=== PATIENT | female | born 1975 | race African-American/Black ===

== ENCOUNTER 2018-05-09 03:25 | Emergency (ER) | payer MEDICAID, MEDICARE ==
--- NOTE | 2018-05-09 04:10 | ER Document Report ---
ED General - General Chief Complaint: Rash Stated Complaint: POSSIBLE RASH Time Seen by Provider: 05/09/18 03:41 Notes: Patient is a 42-year-old female who presents with complaint of a rash that has been ongoing for several months. She said it is on both her hands and legs. She initially she had some on her hands but is since gone away. She says she used vinegar as well as soap and water and sometimes bleach water to treat the rash on her hands. She has been insetting her legs but the areas on her legs are not improving. She herself thinks it could be poison kevin based on pictures that she looked at online. She denies any fevers. She denies any redness or swelling. She says the rash sometimes itches and bush. She denies any oral lesions. No vomiting. No systemic symptoms. I asked the patient if she is on medications are supposed to be on any medications. She says she does have a history of schizophrenia and is used to be prescribed medications for schizophrenia. She says that used to help with but then he got to the point where they are just causing side effects. She said her medications were switched several times but she continued to just have side effects and worsening and therefore she stopped taking them. She says that she feels that she does well without the medications as any benefit from medications was outweighed by the side effects. She denies any thoughts of wanting herself or hallucinations. She lives with her mother. Past Medical History - Social History Smoking Status: Unknown if Ever Smoked Chew tobacco use (# tins/day): No Frequency of alcohol use: None Drug Abuse: None Family History: Reviewed & Not Pertinent Patient has suicidal ideation: No Patient has homicidal ideation: No Renal/ Medical History: Denies: Hx Peritoneal Dialysis Review of Systems - Review of Systems Notes: My Normal Review Basic REVIEW OF SYSTEMS: CONSTITUTIONAL : Denies fever, chills, or sweats. Denies recent illness. EENT: Denies eye, ear, throat, or mouth pain or symptoms. Denies nasal or sinus congestion. GASTROINTESTINAL: . Denies nausea, vomiting, or diarrhea. MUSCULOSKELETAL: Denies neck or back pain or joint pain or swelling. SKIN: Rash on legs. NEUROLOGICAL: Denies altered mental status or loss of consciousness. PSYCHIATRIC: Has depression. Denies thoughts of suicide. Denies hallucinations. ALL OTHER SYSTEMS REVIEWED AND NEGATIVE. Physical Exam - Notes Notes: General Appearance: Well nourished, alert, cooperative, no acute distress, no obvious discomfort. Well-appearing Vitals: reviewed, See vital signs table. Eyes: PERRL, EOMI, Conjuctiva clear Mouth: No decreasd moisture Lungs: No wheezing, No rales, No rhonci, No accessory muscle use, good air exchange bilaterally. Heart: Normal rate, Regular rythm, No murmur, no rub Abdomen: Normal BS, soft, No rigidity, No abdominal tenderness, No guarding, no rebound, no abdominal masses, no organomegaly Extremities: strength 5/5 in all extremities, good pulses in all extremities, no swelling or tenderness in the extremities, no edema. Skin: Patient is a very dry appearance to her skin on her legs. She has appears to be some chronic excoriation to the skin on her right leg and also some areas that look consistent with nummular eczema. No surrounding erythema or spreading redness. No signs of infection at this time. No drainage from the rash. Neuro: speech clear, oriented x 3, normal affect, responds appropriately to questions. Psychiatric: Patient does have a somewhat odd affect however she answers all questions appropriately. She is shows no signs of hallucinations during exam. She gives appropriate responses. She makes good eye contact. She is not depressed appearing at all. She is not easily agitated. Course - Re-evaluation Re-evalutation: 05/09/18 04:45 Patient is well-appearing. I feel the patient is safe to be discharged home. I suspect based on exam that she has eczema. I recommend using the low potency triamcinolone cream in conjunction with a non-perfumed non-dyed lotion such as Eucerin or CeraVe cream. Currently the rash does not have any signs of infection. There is no blistering. There is no ulcerations. I talked to patient length about the rash. Patient herself is convinced that it is poison kevin. I informed patient that is highly unlikely this is poison kevin being that has been there now for several months. Also the rash does not look like poison kevin. Also the patient does not remember actually touching or wearing up against poison kevin leaves and also the rash goes well upon to her thigh which is unlikely to be exposed to the poison kevin. I informed the patient that I do recommend the treatment that I have prescribed and that she should try this. Patient is willing to try the treatment of prescribed. She said she would follow-up with the rash worsens or if she has surrounding redness or swelling. Patient does not have vital signs because she refused vital signs because she says that they will not help in treatment of the rash. Patient does not want her vital signs taking. Patient does have a history of schizophrenia. She is at not actively hallucinating and is not depressed and answers my questions appropriately. Despite this is still offered for her to speak with mental health being that she is off her medications. She does not want to speak with mental health and says that she prefers not to get back medications being that she feels the side effects of medications outweigh the benefits. She says she would rather follow-up with her physician in regards to this. Patient is not showing any signs or symptoms that would require involuntary commitment and therefore patient will be discharged as requested with treatment of the rash. I informed patient she is welcome return anytime she changes her mind about seeing our mental health evaluators. Dictation of this chart was performed using voice recognition software; therefore, there may be some unintended grammatical errors. Discharge - Discharge Clinical Impression: Rash Condition: Good Disposition: HOME, SELF-CARE Additional Instructions: Please apply a thin layer of the triamcinolone cream to your rash on your leg twice a day. Please also apply a perfume and dye free lotion such as Eucerin or Cerave twice a day. Please follow-up with your doctor in 3-4 days for reevaluation. Please return to the ER immediately if you have fevers, associated swelling with the rash, or worsening of the rash. Please return to the ER if you are having hallucinations, depression, thoughts of suicide, or if you want any help with his schizophrenia or want to reconsider going back on medications for your history of schizophrenia. Prescriptions: Triamcinolone Acetonide [Triderm] 454 gm TP ASDIR PRN #454 cream..g. PRN Reason: Referrals: PAOLA BA MD [ACTIVE STAFF] - Follow up in 3-5 days
[2018-05-09 04:40] VITALS: BP 116/59
== END 2018-05-09 04:40 | disposition home or self-care (01) ==
LOC: ER 03:25
DX: R21 Rash and other nonspecific skin eruption (principal)
CPT/HCPCS: 99282

== ENCOUNTER 2018-05-09 11:25 | Emergency (ER) | payer SELFPAY | END 2018-05-09 11:33 | disposition left against medical advice (07) | LOC: ER 11:25 | DX: Z53.21 Procedure and treatment not carried out due to patient leaving prior to being seen by health care provider (principal) ==

== ENCOUNTER 2019-03-21 13:51 | Emergency (ER) | payer SELFPAY ==
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
[2019-03-21 15:47] LABS: ALBUMIN 3.9 g/dL (3.5-5.0); ALKALINE PHOSPHATASE 46 U/L (38-126); ANION GAP 9 (5-19); ASPARTATE AMINO TRANSFERASE 16 U/L (14-36); BILIRUBIN,DIRECT 0.2 mg/dL (0.0-0.4); BILIRUBIN,TOTAL 0.4 mg/dL (0.2-1.3); BLOOD UREA NITROGEN 11 mg/dL (7-20); CALCIUM 8.8 mg/dL (8.4-10.2); CARBON DIOXIDE 23 mmol/L (22-30); CHLORIDE 112 mmol/L (98-107); GLUCOSE 111 mg/dL (75-110); POTASSIUM 3.8 mmol/L (3.6-5.0); TOTAL PROTEIN 7.3 g/dL (6.3-8.2)
[2019-03-21 15:48] LABS: ACETAMINOPHEN < 10 ug/mL (10-30); ALCOHOL < 10 mg/dL (NONE DETECTED); SALICYLATE < 1.0 mg/dL (2.0-20.0)
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
[2019-03-21 18:25] LABS: ABSOLUTE BASOPHILS # (AUTO) 0.1 10^3/uL (0.0-0.2); ABSOLUTE LYMPHOCYTES (AUTO) 0.7 10^3/uL (0.5-4.7); ABSOLUTE MONOCYTES (AUTO) 0.6 10^3/uL (0.1-1.4); ABSOLUTE NEUT (AUTO) 8.1 10^3/uL (1.7-8.2); BASOPHILS % (AUTO) 0.7 % (0-2); HEMATOCRIT 19.3 % (36.0-47.0); LYMPHOCYTES % (AUTO) 7.7 % (13-45); MEAN CORPUSCULAR HEMOGLOBIN 15.5 pg (27.0-33.4); MEAN CORPUSCULAR HGB CONC 27.9 g/dL (32.0-36.0); MONOCYTES % (AUTO) 6.3 % (3-13); PLATELET COUNT 266 10^3/uL (150-450); RED BLOOD COUNT 3.47 10^6/uL (3.72-5.28); RED CELL DISTRIBUTION WIDTH 21.3 % (11.5-14.0); SEGMENTED NEUTROPHILS % (AUTO) 85.3 % (42-78); TOTAL CELLS COUNTED % (AUTO) 100 %; WHITE BLOOD COUNT 9.5 10^3/uL (4.0-10.5)
[2019-03-21 18:56] LABS: HEMOGLOBIN 5.4 g/dL (12.0-15.5)
[2019-03-21 18:57] LABS: MEAN CORPUSCULAR VOLUME 56 fl (80-97)
[2019-03-21 18:58] LABS: ANISOCYTOSIS 3+; HYPOCHROMASIA 4+; OVALOCYTES SLIGHT; PLATELET COMMENT ADEQUATE; POIKILOCYTOSIS 1+; POLYCHROMASIA SLIGHT; TEAR DROP CELLS SLIGHT
[2019-03-21 19:39] LABS: ABSOLUTE RETICS # 0.068 10^6/uL (0.028-0.122); RETICULOCYTE COUNT (AUTO) 1.95 % (0.66-2.85)
[2019-03-21 19:43] LABS: INTERNATIONAL RATION (INR) 1.08
[2019-03-21] MEDS ORDERED: RISPERIDONE 1 MG TABLET PO SCH (19:45)
[2019-03-21] MEDS ORDERED: BENZTROPINE MESYLATE 1 MG TABLET PO SCH (19:45)
[2019-03-21 19:50] LABS: IRON(TIBC) 15.3 ug/dL (37-170)
[2019-03-21 20:26] LABS: FERRITIN 3.65 ng/mL (6.2-137.0)
[2019-03-21 20:57] LABS: FOLATE > 20.00 ng/mL (>2.76)
[2019-03-21] MEDS: RISPERIDONE 1 MG TABLET PO SCH (22:23)
[2019-03-21] MEDS: BENZTROPINE MESYLATE 1 MG TABLET PO SCH (22:24)
--- NOTE | 2019-03-21 22:55 | ER Document Report ---
Doctor's Note Notes: 03/21/19 22:54 The patient has a severe microcytic hypochromic iron deficiency anemia with a hemoglobin of 5.4 I ordered anemia studies which confirmed that this is all iron deficiency. I did order a stool Hemoccult sometime ago and asked the nurse to obtain the test so we would know if this was a blood loss anemia. Blood transfusion was not considered at this time, as the patient is not competent to consent, and this appears to be a long-standing chronic anemia.
[2019-03-22 08:44] LABS: URINE AMPHETAMINES SCREEN NEGATIVE; URINE BARBITURATES SCREEN NEGATIVE; URINE BENZODIAZEPINES SCREEN UNCONFIRMED POSITIVE; URINE COCAINE SCREEN NEGATIVE; URINE MARIJUANA (THC) SCREEN NEGATIVE; URINE METHADONE SCREEN NEGATIVE; URINE PHENCYCLIDINE SCREEN NEGATIVE
--- NOTE | 2019-03-22 09:04 | EKG REPORT ---
SEVERITY:- ABNORMAL ECG - SINUS RHYTHM LEFT VENTRICULAR HYPERTROPHY : Confirmed by: Dorothy Branham MD 22-Mar-2019 09:03:32
[2019-03-22] MEDS: RISPERIDONE 1 MG TABLET PO SCH (09:58)
[2019-03-22] MEDS: BENZTROPINE MESYLATE 1 MG TABLET PO SCH (09:58)
--- NOTE | 2019-03-22 10:25 | ER Document Report ---
Doctor's Note Notes: 03/22/19 10:22 Rounds: Chart reviewed and patient interviewed. Patient has been relatively uncooperative since her arrival last evening. She refused to have her labs drawn initially. As refused to answer questions. This morning, she is refusing medications so we offered them IM and she decided to take her pills. Patient was hypotensive when she first arrived yesterday, but she had had Haldol, Benadryl, and Versed IM. She was given IV fluids and today, her blood pressure is 106/69. She is awake and alert and oriented. Patient's hemoglobin came back at 5.4. We have no old records to compare. However, all of her indices look like this is a iron deficient anemia. Patient says that she is on her cycle and this happens to her during her cycle. She says that she is never had to be transfused before. Does not want to take iron pills. Although patient is here for psychiatric evaluation, I think for mental status allows for her to make a decision about an apparent elective treatment of chronic iron deficient anemia. For now, we will not transfuse the patient forcibly and will not start iron pills. Other vital signs are all normal. Other lab studies were essentially normal. Patient appears to be medically stable for transfer or discharge. Jamee Marquis MD
[2019-03-22 15:06] LABS: PATH REVIEW PATHOLOGIST REVIEWED
[2019-03-22 21:36] VITALS: BP 110/70
--- NOTE | 2019-03-22 21:46 | ER Document Report ---
Doctor's Note Notes: 03/22/19 21:45 I was notified by nursing at 2118 that the patient was being ready to be transferred to a psychiatric facility. I went and evaluated the patient. was present for transportation. She was sleeping comfortably, but stable. Had no questions or complaints. She was transferred in stable condition.
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
== END 2019-03-22 21:36 ==
LOC: ER 13:51
DX: F29 Unspecified psychosis not due to a substance or known physiological condition (principal); D50.9 Iron deficiency anemia, unspecified; R41.0 Disorientation, unspecified
CPT/HCPCS: 36415; 80053; 80307; 82607; 82728; 82746; 83540; 83550; 85025; 85045; 85610; 86850; 86900; 86901; 93005; 93010; 99285

== ENCOUNTER 2020-03-31 21:51 | Emergency (ER) | payer MEDICARE, MEDICAID ==
[2020-03-31] MEDS ORDERED: HALOPERIDOL LACTATE INJ 5 MG/1 ML VIAL IM ONE (22:19)
[2020-03-31] MEDS ORDERED: LORAZEPAM INJ 2 MG/1 ML VIAL IM ONE (22:20)
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
[2020-03-31 23:30] LABS: ABSOLUTE LYMPHOCYTES (AUTO) 0.6 10^3/uL (0.5-4.7); ABSOLUTE MONOCYTES (AUTO) 0.5 10^3/uL (0.1-1.4); ABSOLUTE NEUT (AUTO) 4.8 10^3/uL (1.7-8.2); BASOPHILS % (AUTO) 0.7 % (0-2); EOSINOPHILS % (AUTO) 0.3 % (0-6); HEMATOCRIT 20.6 % (36.0-47.0); LYMPHOCYTES % (AUTO) 10.7 % (13-45); MEAN CORPUSCULAR HEMOGLOBIN 16.5 pg (27.0-33.4); MONOCYTES % (AUTO) 8.4 % (3-13); PLATELET COUNT 214 10^3/uL (150-450); RED BLOOD COUNT 3.62 10^6/uL (3.72-5.28); RED CELL DISTRIBUTION WIDTH 19.6 % (11.5-14.0); SEGMENTED NEUTROPHILS % (AUTO) 79.9 % (42-78); TOTAL CELLS COUNTED % (AUTO) 100 %
[2020-03-31 23:44] LABS: MEAN CORPUSCULAR VOLUME 57 fl (80-97)
[2020-03-31 23:50] LABS: ALBUMIN 3.9 g/dL (3.5-5.0); ALKALINE PHOSPHATASE 65 U/L (38-126); ANION GAP 10 (5-19); ASPARTATE AMINO TRANSFERASE 22 U/L (14-36); BILIRUBIN,DIRECT 0.2 mg/dL (0.0-0.4); BILIRUBIN,TOTAL 0.5 mg/dL (0.2-1.3); BLOOD UREA NITROGEN 6 mg/dL (7-20); CALCIUM 8.5 mg/dL (8.4-10.2); CARBON DIOXIDE 24 mmol/L (22-30); CHLORIDE 102 mmol/L (98-107); GLUCOSE 171 mg/dL (75-110); POTASSIUM 3.6 mmol/L (3.6-5.0)
[2020-03-31 23:51] LABS: ANISOCYTOSIS 3+; OVALOCYTES 2+; POIKILOCYTOSIS 3+; POLYCHROMASIA SLIGHT; SCHISTOCYTES SLIGHT; TARGET CELLS 1+; TOXIC GRANULATION SLIGHT
[2020-03-31 23:52] LABS: ACETAMINOPHEN < 10 ug/mL (10-30); ALCOHOL < 10 mg/dL (NONE DETECTED); PLATELET COMMENT ADEQUATE; SALICYLATE < 1.0 mg/dL (2.0-20.0); TEAR DROP CELLS SLIGHT
[2020-03-31] MEDS ORDERED: FERROUS SULFATE LIQUID 300 MG/5 ML UDC PO ONE (23:52)
[2020-04-01 04:14] LABS: APPEARANCE,URINE CLEAR; BILIRUBIN,URINE NEGATIVE (NEGATIVE); COLOR,URINE STRAW; GLUCOSE, URINE NEGATIVE (NEGATIVE); KETONES,URINE NEGATIVE (NEGATIVE); LEUKOCYTE ESTERASE,URINE NEGATIVE (NEGATIVE); NITRITE,URINE NEGATIVE (NEGATIVE); PROTEIN,URINE NEGATIVE (NEGATIVE); URINE SPECIFIC GRAVITY 1.004; UROBILINOGEN,URINE NEGATIVE mg/dL (<2.0)
[2020-04-01 04:28] LABS: URINE AMPHETAMINES SCREEN NEGATIVE; URINE BARBITURATES SCREEN NEGATIVE; URINE BENZODIAZEPINES SCREEN NEGATIVE; URINE COCAINE SCREEN NEGATIVE; URINE MARIJUANA (THC) SCREEN NEGATIVE; URINE METHADONE SCREEN NEGATIVE; URINE PHENCYCLIDINE SCREEN NEGATIVE
--- NOTE | 2020-04-01 06:30 | EKG REPORT ---
SEVERITY:- ABNORMAL ECG - SINUS RHYTHM PROBABLE LEFT ATRIAL ABNORMALITY LEFT VENTRICULAR HYPERTROPHY : Confirmed by: Kendall Torres MD 01-Apr-2020 06:29:54
[2020-04-01 12:55] LABS: PATH REVIEW PATHOLOGIST REVIEWED
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
[2020-04-01] MEDS: BENZTROPINE MESYLATE 1 MG TABLET PO SCH (19:49)
[2020-04-01] MEDS: RISPERIDONE 1 MG TABLET PO SCH (19:49)
[2020-04-02] MEDS ORDERED: IRON POLYSACCHARIDES COMPLEX 150 MG CAPSULE PO SCH (10:00)
[2020-04-02] MEDS: BENZTROPINE MESYLATE 1 MG TABLET PO SCH (10:25)
[2020-04-02] MEDS: RISPERIDONE 1 MG TABLET PO SCH (10:25)
[2020-04-02 11:32] VITALS: BP 125/68
== END 2020-04-02 12:19 ==
LOC: ER 21:51
DX: Z04.6 Encounter for general psychiatric examination, requested by authority (principal); F20.9 Schizophrenia, unspecified; F42.9 Obsessive-compulsive disorder, unspecified; R45.850 Homicidal ideations; R45.1 Restlessness and agitation; R73.9 Hyperglycemia, unspecified; I10 Essential (primary) hypertension; D50.9 Iron deficiency anemia, unspecified; R00.0 Tachycardia, unspecified; Z91.14 Patient's other noncompliance with medication regimen
CPT/HCPCS: 93005; 99285; 96372; 36415; 82962; 80307 ×4; 85025; 80053; 81001; 93010; A9270 ×5; J1630; J2060